=== PATIENT | female | born 1965 | race American Indian/Alaskan Native ===

== ENCOUNTER 2019-08-01 17:26 | Emergency (ER) | payer OTHER ==
[2019-08-01 17:31] VITALS: BP 150/91; PULSE 80; TEMP 98.3; BMI 27.1
--- NOTE | 2019-08-01 17:54 | PDOC ---
History of Present Illness - General Chief Complaint: Abscess Boil Stated Complaint: DRAIN PROCEDURE ON BACK Time Seen by Provider: 08/01/19 17:35 History Source: Patient Exam Limitations: No Limitations Past History - Past Medical History Allergies/Adverse Reactions: Allergies Allergy/AdvReac Type Severity Reaction Status Date / Time No Known Allergies Allergy Verified 08/01/19 17:28 Home Medications: Ambulatory Orders Atorvastatin Ca [Lipitor -] 20 mg PO HS 07/29/13 Cyclobenzaprine HCl [Flexeril -] 10 mg PO HS #7 tablet 07/29/13 Ibuprofen [Motrin -] 600 mg PO QID #15 tablet 07/29/13 COPD: No Diabetes: Yes (NIDM) Hypercholesterolemia: Yes - Surgical History Abdominal Surgery: Yes (umbilical hernia) Cholecystectomy: Yes - Immunization History Immunization Up to Date: Yes - Psycho Social/Smoking Cessation Hx Smoking Status: No Smoking History: Never smoked Number of Cigarettes Smoked Daily: 0 Information on smoking cessation initiated: No Hx Alcohol Use: No Drug/Substance Use Hx: No *Physical Exam - Vital Signs Last Vital Signs Temp Pulse Resp BP Pulse Ox 98.3 F 80 16 150/91 100 08/01/19 17:28 08/01/19 17:28 08/01/19 17:28 08/01/19 17:28 08/01/19 17:28 - Physical Exam General Appearance: No: Apparent Distress Integumentary: positive: Other (around 7x7 cm area of induration along mid back with center of fluctuance and slight serosanguinous drainage, no significant erythema surrounding site, no streaking) Medical Decision Making - Medical Decision Making 53 y/o F hx of borderline DM, HLD presents with sebacous cyst to mid-back x 2 weeks, gradually getting better, which burst on its own yesterday. Initially, her PCP had placed her on Augmentin 875 mg x 14 days, which patient has completed for 10 days. However, after it burst yesterday, she was referred to surgery. She saw Dr. Sebastian Desai today who told her the site was too large and to come to ED, where he will drain it there. Denies fever. Patient denies ever having an abscess this size in the past. Abscess to mid-back Will check FS Patient does not currently want pain meds Message left with Dr. Desai's office and pending to hear back 08/01/19 17:54 After [address] Desai, heard back from construction secretary that he is coming in 30 minutes for drainage of abscess 08/01/19 19:02 I&D performed by Dr. Desai - per Dr. Desai, advised to finish abx, wound cx sent from ED, patient to come into ED in 2 days for wound check and to see Dr. Desai on 08/05 for follow-up as well 08/01/19 19:48 Discharge - Discharge Information Problems reviewed: Yes Clinical Impression/Diagnosis: Abscess of back Condition: Stable Disposition: HOME - Admission No - Additional Discharge Information Prescription Drug Monitoring Program (I-STOP) results: I-STOP not reviewed - Follow up/Referral - Patient Discharge Instructions Patient Printed Discharge Instructions: DI for Incision and Drainage of a Skin Abscess Additional Instructions: Thank you for choosing [facility]. It was a pleasure taking care of you. You may take Motrin 600 mg every 6 hours by mouth as needed for mild to moderate pain. Take Motrin with food. Return in 2 days for wound check Finish the course of Augmentin which you were already prescribed Please also follow-up with Dr. Desai on 08/05 Return to the Emergency Department if your symptoms worsen or persist, you have fever, streaking from site or other concerning symptoms. - Post Discharge Activity
[2019-08-01] MEDS ORDERED: LIDOCAINE 1%-EPI 1:100,000 30 ML MDV IJ ONE (19:30)
--- NOTE | 2019-08-01 20:03 | PROC ---
Procedure Note Procedure: Incision and drainage of abscess on back done in [facility]. Procedure note: Diagnosis: Abscess on back, diabetes mellitus, hypertension. Anesthesia : Local with 1% liodocaine with epinmephrine. No 15 gauge needle used to incise the abscess on the midback. About 15-20 ccs of pus evacuated. Wound was irrigated and packed with iodoform gauze. Patient tolerated well. Antibiotics given. Follow up in my office.
[2019-08-01] MEDS ORDERED: LIDOCAINE 1%/EPI 1:100000 (20 ML MULTI DOSE VIAL) INF ONE (20:06)
--- NOTE | 2019-08-01 20:53 | OP ---
DATE OF OPERATION: 08/01/2019 SEX: Female. AGE: [age] years old. Patient was seen in my office and sent to [facility] for an incision and drainage. She had an abscess on the back in the midline. She is also diabetic and hypertensive. She had been on antibiotics for 10 days. She has had a mass in the back for many months, but it has been increasingly painful in the last few days. The site was identified in the area and the patient was placed prone on the operating table. The area was painted with Betadine and draped. Then, 1% lidocaine with epinephrine was injected circumferentially around the lesion; 10 mL was injected. With a sharp 11-blade, a vertical incision was made about 3 cm in length. Pus was evacuated. The large, 10 cm, cavity underneath the skin and subcutaneous tissue. Swab was sent for culture and antibiotic synthesis examination. About 25 mL of pus was drained and evacuated. The cavity was irrigated with peroxide and saline, and with a clamp, all the pockets were evacuated. Once the cavity was irrigated, it was packed with a 1/4-inch Iodoform pack and a dressing applied. Patient will continue to take Augmentin which she has been taking, and she will be followed in the office. The pus was sent for culture and examination. Guillermo [id number]
== END 2019-08-01 20:08 | disposition home or self-care (01) ==
LOC: JER 17:26
PROC: 0J970ZZ Drainage of Back Subcutaneous Tissue and Fascia, Open Approach (ICD-10-PCS; principal; 2019-08-01)
PROC: 3E023BZ Introduction of Anesthetic Agent into Muscle, Percutaneous Approach (ICD-10-PCS; 2019-08-01)
DX: L02.212 Cutaneous abscess of back [any part, except buttock and flank] (principal); E78.00 Pure hypercholesterolemia, unspecified; E11.9 Type 2 diabetes mellitus without complications; Z79.84 Long term (current) use of oral hypoglycemic drugs
CPT/HCPCS: 82962; 87070; 87076; 87077; 87205; 99282-25

== ENCOUNTER 2021-07-23 17:47 | Observation (INO) | payer BC, OTHER ==
[2021-07-23 18:51] VITALS: BMI 26.5
[2021-07-23 20:48] LABS: BASO % 0.5 % (0-2.0); EOS % 0.7 % (0-4.5); HEMATOCRIT 40.2 % (32.4-45.2); HEMOGLOBIN 13.7 GM/dL (10.7-15.3); LYMPH % 22.1 % (8-40); MCH 30.7 pg (25.7-33.7); MEAN CELL VOLUME 90.1 fl (80-96); MEAN PLT VOLUME 8.5 fl (7.5-11.1); MONO % 3.6 % (3.8-10.2); NEUT % 73.1 % (42.8-82.8); PLATELET COUNT 267 10^3/uL (134-434); RBC 4.46 M/mm3 (3.60-5.2); RDW 13.6 % (11.6-15.6); WHITE BLOOD COUNT 9.2 K/mm3 (4.0-10.0)
[2021-07-23 20:55] LABS: INR 0.81 (0.83-1.09); PROTHROMBIN TIME (PATIENT) 9.9 SEC (9.7-13.0)
[2021-07-23 20:57] LABS: ACTIVATED PTT 29.4 SECONDS (25.2-36.5)
[2021-07-23 21:07] LABS: CHLORIDE 104 mmol/L (98-107); SODIUM 139 mmol/L (136-145)
[2021-07-23 21:09] LABS: ALBUMIN 4.1 g/dl (3.4-5.0); ANION GAP 6 MMOL/L (8-16); CALCIUM 9.9 mg/dL (8.5-10.1); CO2 29 mmol/L (21-32); GLUCOSE,RANDOM 116 mg/dL (74-106)
[2021-07-23 21:10] LABS: BLOOD UREA NITROGEN 12.9 mg/dL (7-18)
[2021-07-23 21:12] LABS: CHOLESTEROL 212 mg/dL (50-200); SGOT/AST 21 U/L (15-37); SGPT/ALT 51 U/L (13-61)
[2021-07-23 21:13] LABS: CREATININE 0.7 mg/dL (0.55-1.3)
[2021-07-23 21:14] LABS: BILIRUBIN,TOTAL 0.9 mg/dL (0.2-1); LDL CHOLESTEROL (ONLY SJRH) 130 mg/dL (5-100); TOT PROT 8.3 g/dl (6.4-8.2)
[2021-07-23 21:15] LABS: ALK PHOS 72 U/L (45-117); HDL CHOLESTEROL 61 mg/dL (40-60)
[2021-07-23 21:18] LABS: TRIGLYCERIDES 199 mg/dL (0-150)
[2021-07-23 22:11] VITALS: BP 147/86; PULSE 86
[2021-07-23] MEDS ORDERED: ACETAMINOPHEN 325 MG TABLET (FP) PO PRN (22:53)
[2021-07-23] MEDS ORDERED: LOSARTAN POTASSIUM 25 MG TABLET PO SCH (23:37)
[2021-07-23] MEDS ORDERED: ATORVASTATIN CA 20 MG TABLET (FP) PO SCH (23:37)
[2021-07-24] MEDS ORDERED: ATORVASTATIN CA 80 MG TABLET (FP) PO SCH (00:04)
[2021-07-24] MEDS ORDERED: INSULIN SLIDING SCALE (NOVOLOG) 1 VIAL SQ SCH (07:00)
[2021-07-24 07:05] LABS: HEMATOCRIT 38.9 % (32.4-45.2); HEMOGLOBIN 13.3 GM/dL (10.7-15.3); MCH 30.9 pg (25.7-33.7); MCHC 34.2 g/dl (32.0-36.0); MEAN CELL VOLUME 90.5 fl (80-96); MEAN PLT VOLUME 8.6 fl (7.5-11.1); PLATELET COUNT 247 10^3/uL (134-434); RDW 13.6 % (11.6-15.6); WHITE BLOOD COUNT 8.7 K/mm3 (4.0-10.0)
[2021-07-24 07:14] LABS: INR 0.9 (0.83-1.09)
[2021-07-24 07:18] LABS: CALCIUM 9.4 mg/dL (8.5-10.1)
[2021-07-24 07:19] LABS: ALBUMIN 3.8 g/dl (3.4-5.0); BLOOD UREA NITROGEN 15.1 mg/dL (7-18); MAGNESIUM 1.9 mg/dL (1.8-2.4)
[2021-07-24 07:21] LABS: CREATININE 0.8 mg/dL (0.55-1.3)
[2021-07-24 07:22] LABS: PHOSPHOROUS 4.3 mg/dL (2.5-4.9)
[2021-07-24 07:23] LABS: BILIRUBIN,TOTAL 1.3 mg/dL (0.2-1); TOT PROT 7.8 g/dl (6.4-8.2)
[2021-07-24] MEDS ORDERED: ENOXAPARIN NA (PORCINE) 40 MG/0.4 ML DISP.SYRIN SQ SCH (10:00)
== END 2021-07-25 06:35 | disposition left against medical advice (07) ==
LOC: JER 17:47 → JERBED 22:36
PROVIDERS: ADMIT Internal Medicine; ATTEND Internal Medicine
DX: G45.9 Transient cerebral ischemic attack, unspecified (principal); I10 Essential (primary) hypertension; E78.5 Hyperlipidemia, unspecified; E11.9 Type 2 diabetes mellitus without complications; Z86.16 Personal history of COVID-19; G62.9 Polyneuropathy, unspecified; Z29.9 Encounter for prophylactic measures, unspecified
CPT/HCPCS: 36415; 70450-TC; 71045-TC-FY; 72125-TC; 80053; 80061; 82550; 82962; 83036; 83735; 84100; 84443; 84484; 85025; 85027; 85610; 85730; 86850; 86900; 86901; 93005; 93010; 93880-TC; 99285-25; C9803; G0378; U0003; U0005

== ENCOUNTER 2023-04-06 04:01 | Day surgery (SDC) | payer BC ==
[2023-04-05 07:28] VITALS: BMI 25.3
[2023-04-06 09:06] VITALS: TEMP 97.5
[2023-04-06 09:44] VITALS: BP 117/75; PULSE 66; RESP 18
== END 2023-04-06 10:19 | disposition home or self-care (01) ==
LOC: JASU-ENDO 04:01
PROVIDERS: ATTEND Internal Medicine Gastroenterology
PROC: 0DB78ZX Excision of Stomach, Pylorus, Via Natural or Artificial Opening Endoscopic, Diagnostic (ICD-10-PCS; principal; 2023-04-06 08:30)
DX: K29.50 Unspecified chronic gastritis without bleeding (principal); K44.9 Diaphragmatic hernia without obstruction or gangrene; I10 Essential (primary) hypertension; E11.9 Type 2 diabetes mellitus without complications; Z79.84 Long term (current) use of oral hypoglycemic drugs
CPT/HCPCS: 82962; 88305-TC; 88342-TC

== ENCOUNTER → 2023-05-03 | Day surgery (SDC) | payer BC | END | disposition home or self-care (01) | LOC: FMAMMOTONE 09:17 | PROVIDERS: ATTEND Surgery | PROC: 0HBU3ZX Excision of Left Breast, Percutaneous Approach, Diagnostic (ICD-10-PCS; principal; 2023-05-03) | DX: N60.12 Diffuse cystic mastopathy of left breast (principal); N60.32 Fibrosclerosis of left breast; N64.89 Other specified disorders of breast; R92.8 Other abnormal and inconclusive findings on diagnostic imaging of breast | CPT/HCPCS: 19081; 76098-TC-FY; 87899; A4648 ==

== ENCOUNTER 2023-12-05 04:10 | Day surgery (SDC) | payer BC ==
[2023-12-01 12:48] VITALS: BMI 25.0
[2023-12-05] MEDS ORDERED: LIDOCAINE HCL 1%, 10 MG/ML (20ML VIAL) ONE (12:47)
[2023-12-05] MEDS ORDERED: MIDAZOLAM HCL 2 MG/2 ML SINGLE DOSE VIAL ONE (13:28)
[2023-12-05] MEDS ORDERED: PROPOFOL 20 ML ONE (13:28)
[2023-12-05] MEDS ORDERED: ceFAZolin SODIUM 1 GM VIAL ONE (13:30)
[2023-12-05] MEDS ORDERED: SODIUM CHLORIDE 0.9% P/F 10 ML VIAL IJ ONE (13:30)
[2023-12-05] MEDS ORDERED: LIDOCAINE HCL/PF 2% SDV 5ML VIAL ONE (13:30)
[2023-12-05] MEDS ORDERED: GLYCOPYRROLATE 0.2 MG/1 ML VIAL ONE (13:30)
[2023-12-05] MEDS ORDERED: PROMETHAZINE HCL 25 MG/1 ML VIAL IVPB PRN (13:37)
[2023-12-05] MEDS ORDERED: ONDANSETRON 4 MG/2 ML VIAL IVPUSH PRN (13:37)
[2023-12-05] MEDS ORDERED: oxyCODONE HCL 5 MG TABLET PO PRN (13:37)
[2023-12-05] MEDS ORDERED: ACETAMINOPHEN INJECTION 100 ML IVPB ONE (13:40)
[2023-12-05] MEDS ORDERED: LACTATED RINGERS SOLUTION 1,000 ML IV SCH (13:45)
[2023-12-05] MEDS: ceFAZolin SODIUM 1 GM VIAL IVPB ONE (13:56)
[2023-12-05] MEDS: LIDOCAINE HCL 1%, 10 MG/ML (50 mL VIAL) NR ONE (14:03)
[2023-12-05 15:52] VITALS: BP 126/80; PULSE 68; RESP 18; TEMP 98.4
== END 2023-12-05 16:27 | disposition home or self-care (01) ==
LOC: JASU-SURG 04:10
PROVIDERS: ATTEND Surgery
PROC: 0HBU0ZX Excision of Left Breast, Open Approach, Diagnostic (ICD-10-PCS; principal; 2023-12-05 14:03)
DX: D24.2 Benign neoplasm of left breast (principal)
CPT/HCPCS: 19281; 76098-TC-FY; 82962; 94760; J0131

== ENCOUNTER 2024-03-19 10:57 | Emergency (ER) | payer BC ==
[2024-03-19 11:20] VITALS: BP 145/86; PULSE 85; RESP 16; TEMP 98; BMI 25.6
[2024-03-19] MEDS ORDERED: ONDANSETRON 4 MG/2 ML VIAL ONE (11:44)
[2024-03-19] MEDS ORDERED: HYDROmorphone HCL/PF 1 MG/ML VIAL ONE (11:44)
[2024-03-19] MEDS ORDERED: KETOROLAC TROMETHAMINE 15 MG/ML VIAL ONE (11:44)
[2024-03-19] MEDS ORDERED: LIDOCAINE HCL 2% (20ML MULTI-DOSE VIAL) ONE (11:45)
[2024-03-19] MEDS: HYDROmorphone HCl 2 MG/ML VIAL IVPUSH ONE (11:58)
[2024-03-19] MEDS: ONDANSETRON 4 MG/2 ML VIAL IVPUSH ONE (11:59)
[2024-03-19] MEDS: LIDOCAINE HCL 2% (50ML VIAL) SQ ONE (12:00)
[2024-03-19] MEDS: KETOROLAC TROMETHAMINE 15 MG/ML VIAL IVPUSH ONE (12:56)
[2024-03-19] MEDS ORDERED: ONDANSETRON *ODT* 4 MG TABLET SL ONE (13:43)
[2024-03-19] MEDS ORDERED: ONDANSETRON *ODT* 4 MG TABLET ONE (13:43)
== END 2024-03-19 13:23 | disposition home or self-care (01) ==
LOC: FER 10:57
PROC: 0H96XZZ Drainage of Back Skin, External Approach (ICD-10-PCS; principal; 2024-03-19)
PROC: 3E033NZ Introduction of Analgesics, Hypnotics, Sedatives into Peripheral Vein, Percutaneous Approach (ICD-10-PCS; 2024-03-19)
PROC: 3E0333Z Introduction of Anti-inflammatory into Peripheral Vein, Percutaneous Approach (ICD-10-PCS; 2024-03-19)
PROC: 3E033GC Introduction of Other Therapeutic Substance into Peripheral Vein, Percutaneous Approach (ICD-10-PCS; 2024-03-19)
DX: L02.212 Cutaneous abscess of back [any part, except buttock and flank] (principal)
CPT/HCPCS: 99284-25

== ENCOUNTER 2024-03-21 11:25 | Emergency (ER) | payer BC ==
[2024-03-21 11:41] VITALS: BP 153/99; PULSE 90; RESP 18; TEMP 98.5; BMI 25.6
== END 2024-03-21 12:05 | disposition home or self-care (01) ==
LOC: FER 11:25
DX: Z48.01 Encounter for change or removal of surgical wound dressing (principal); L02.212 Cutaneous abscess of back [any part, except buttock and flank]
CPT/HCPCS: 99281-25